=== PATIENT | male | born 1960 | race Caucasian/White ===

== ENCOUNTER → 2021-06-02 10:38 | Outpatient (BNVA) | payer OTHER, SELFPAY | PROVIDERS: Referring Provider Emergency Medicine Emergency Medical Services; Visit Provider Specialist | DX: M79.641 Pain in right hand (principal); M79.5 Residual foreign body in soft tissue | CPT/HCPCS: 73130 ==

== ENCOUNTER 2021-06-21 08:29 | Outpatient (CLI) | payer OTHER, SELFPAY ==
--- NOTE | 2021-06-21 08:32 | MR_ITS ---
WS: [id number] MRI RIGHT HAND without CONTRAST. COMPARISON: None Multiplanar, multisequence imaging is performed without contrast. History: Bowling injury several months ago to the third finger. No marrow edema or fracture. There are small subchondral cysts in the third metacarpal head. There is increase fluid like signal and increased separation between the flexor tendon from the proxi mal phalanx of the third finger. Fluid-filled gap extends over a length of 11 mm and is at the dista l phalanx. The tendon itself appears otherwise intact. This does correspond to the area of pain. MR/MR hand RT wo con* [id number] IMPRESSION: 1. Partial rupture of the A2 sandoval of the third finger. There is a short segm ent fluid gap where the flexor tendon is phalanx. 2. No fracture.
== END 2021-06-21 08:30 | disposition home or self-care (01) ==
LOC: RADSHAW 08:30
PROVIDERS: PCP Emergency Medicine Emergency Medical Services; Visit Provider Specialist
DX: M79.89 Other specified soft tissue disorders (principal)
CPT/HCPCS: 73218